=== PATIENT | male | born 1995 | race Hispanic/Latino ===

== ENCOUNTER 2019-08-22 22:05 | Observation (INO) | payer BC ==
[2019-08-22] MEDS ORDERED: NA CHLORIDE 0.9% 1,000 ML ONE (23:24)
[2019-08-22] MEDS ORDERED: MORPHINE 2 MG/ML SYR ONE (23:24)
[2019-08-22] MEDS ORDERED: ONDANSETRON 4 MG/2 ML VIAL ONE (23:24)
[2019-08-22] MEDS ORDERED: FAMOTIDINE 20 MG/2 ML VIAL IV ONE (23:24)
[2019-08-22 23:53] LABS: Absolute Lymphocytes (CBC) 0.4 K/uL (0.7-4.9); Basophils % 0.2 % (0-1.3); Hematocrit 43.7 % (39.6-49.0); Lymphocytes % 3.3 % (15.3-44.8); MPV 8.7 fL (7.6-11.3); RBC Red Blood Cell Count 4.96 M/uL (4.33-5.43)
[2019-08-23 00:14] LABS: Albumin 4.7 g/dL (3.4-5.0); Bilirubin Direct 0.3 mg/dL (0-0.2); Bilirubin Total 1.3 mg/dL (0.2-1.0); Potassium 3.6 mmol/L (3.5-5.1); Protein, Total 7.4 g/dL (6.4-8.2)
[2019-08-23] MEDS ORDERED: CIPROFLOXACIN 400mg IV 400 MG/200 ML BAG IV ONE (00:23)
[2019-08-23] MEDS ORDERED: NA CHLORIDE 0.9% 1,000 ML ONE ×3 (00:23→04:20)
[2019-08-23 00:48] LABS: Blood Morphology Comment NOT SEEN (NOT SEEN); Platelet Estimate ADEQ; Urine White Blood Cell Casts OK
[2019-08-23] MEDS ORDERED: METRONIDAZOLE 500mg IVPB 500 MG/100 ML BAG IV ONE (02:23)
[2019-08-23] MEDS ORDERED: CEFTRIAXONE/SWI 1gm 1 GM/10 ML SYR ONE (02:23)
--- NOTE | 2019-08-23 02:23 | EDPHYS ---
Physician Documentation [facility] Name: Harsha King Age: 24 yrs Sex: Male : 1995 Arrival Date: 08/22/2019 Time: 22:07 Bed 15 Private MD: ED Physician Chu Payne HPI: 08/22 23:19 This 24 yrs old Male presents to ER via Ambulatory with complaints of alicia Abdominal Pain, Nausea, Diarrhea. 23:19 The patient presents to the emergency department with nausea, vomiting, that is alicia intermittent, diarrhea, that is continuous. Onset: The symptoms/episode began/occurred this morning. Possible causes: unknown. The symptoms are aggravated by nothing. The symptoms are alleviated by nothing. Associated signs and symptoms: The patient has no apparent associated signs or symptoms. Severity of symptoms: At their worst the symptoms were moderate in the emergency department the symptoms are unchanged. The patient has not experienced similar symptoms in the past. Historical: - Allergies: 22:12 No Known Allergies; aj1 - Home Meds: 22:12 BuSpar Oral [Active]; aj1 - PMHx: 22:12 Anxiety; aj1 - PSHx: 22:12 arm surgery; aj1 - Immunization history:: Flu vaccine is not up to date. - Social history:: Smoking status: Patient/guardian denies using tobacco. - Ebola Screening: : Patient denies travel to an Ebola-affected area in the 21 days before illness onset. - Family history:: not pertinent. ROS: 23:19 Constitutional: Negative for fever, chills, and weight loss, Eyes: Negative for injury, alicia pain, redness, and discharge, ENT: Negative for injury, pain, and discharge, Neck: Negative for injury, pain, and swelling, Cardiovascular: Negative for chest pain, palpitations, and edema, Respiratory: Negative for shortness of breath, cough, wheezing, and pleuritic chest pain, Back: Negative for injury and pain, : Negative for injury, bleeding, discharge, and swelling, MS/Extremity: Negative for injury and deformity, Neuro: Negative for headache, weakness, numbness, tingling, and seizure, Psych: Negative for depression, anxiety, suicide ideation, homicidal ideation, and hallucinations, Allergy/Immunology: Negative for hives, rash, and allergies, Endocrine: Negative for neck swelling, polydipsia, polyuria, polyphagia, and marked weight changes, Hematologic/Lymphatic: Negative for swollen nodes, abnormal bleeding, and unusual bruising. 23:19 Abdomen/GI: Positive for abdominal pain, nausea and vomiting, diarrhea. 23:19 Skin: Positive for jaundice. Exam: 23:19 Constitutional: This is a well developed, well nourished patient who is awake, alert, alicia and in no acute distress. Head/Face: Normocephalic, atraumatic. Eyes: Pupils equal round and reactive to light, extra-ocular motions intact. Lids and lashes normal. Conjunctiva and sclera are non-icteric and not injected. Cornea within normal limits. Periorbital areas with no swelling, redness, or edema. ENT: Nares patent. No nasal discharge, no septal abnormalities noted. Tympanic membranes are normal and external auditory canals are clear. Oropharynx with no redness, swelling, or masses, exudates, or evidence of obstruction, uvula midline. Mucous membranes moist. Neck: Trachea midline, no thyromegaly or masses palpated, and no cervical lymphadenopathy. Supple, full range of motion without nuchal rigidity, or vertebral point tenderness. No Meningismus. Chest/axilla: Normal chest wall appearance and motion. Nontender with no deformity. No lesions are appreciated. Respiratory: Lungs have equal breath sounds bilaterally, clear to auscultation and percussion. No rales, rhonchi or wheezes noted. No increased work of breathing, no retractions or nasal flaring. Abdomen/GI: Soft, non-tender, with normal bowel sounds. No distension or tympany. No guarding or rebound. No evidence of tenderness throughout. Back: No spinal tenderness. No costovertebral tenderness. Full range of motion. Male : Normal genitalia with no discharge or lesions. Skin: Warm, dry with normal turgor. Normal color with no rashes, no lesions, and no evidence of cellulitis. MS/ Extremity: Pulses equal, no cyanosis. Neurovascular intact. Full, normal range of motion. Neuro: Awake and alert, GCS 15, oriented to person, place, time, and situation. Cranial nerves II-XII grossly intact. Motor strength 5/5 in all extremities. Sensory grossly intact. Cerebellar exam normal. Normal gait. Psych: Awake, alert, with orientation to person, place and time. Behavior, mood, and affect are within normal limits. 23:19 Cardiovascular: Rate: tachycardic, Rhythm: regular, Pulses: Pulses are 4+ in bilateral radial, brachial, femoral, popliteal, posterior tibial and and dorsalis pedis arteries.. Heart sounds: normal, Edema: is not appreciated, JVD: is not appreciated. Vital Signs: 22:12 BP 122 / 78; Pulse 123; Resp 20; Temp 98.5; Pulse Ox 100% on R/A; Weight 81.65 kg (R); aj1 Height 5 ft. 8 in. (172.72 cm) (R); Pain 8/10; 23:05 BP 121 / 75; Pulse 108; Resp 16; Pulse Ox 100% on R/A; Pain 8/10; aa1 08/23 00:32 BP 116 / 65; Pulse 82; Resp 16; Pulse Ox 99% on R/A; aa1 01:30 BP 110 / 78; Pulse 97; Resp 18; Pulse Ox 100% on R/A; aa1 02:30 BP 127 / 77; Pulse 87; Resp 16; Temp 98.9; Pulse Ox 100% on R/A; Pain 0/10; aa1 03:50 BP 104 / 70; Pulse 97; Resp 16; Temp 99.0; Pulse Ox 98% on R/A; Pain 0/10; aa1 08/22 22:12 Body Mass Index 27.37 (81.65 kg, 172.72 cm) [facility] MDM: 08/22 23:10 Patient medically screened. [facility] 23:19 Data reviewed: vital signs, nurses notes, lab test result(s), radiologic studies, CT alicia scan. 08/22 23:19 Order name: Basic Metabolic Panel; Complete Time: 00:21 [facility] 08/22 23:19 Order name: CBC with Diff; Complete Time: 00:54 [facility] 08/22 23:19 Order name: Creatinine for Radiology; Complete Time: 00:21 [facility] 08/22 23:19 Order name: Hepatic Function; Complete Time: 00:21 [facility] 08/22 23:19 Order name: Lipase; Complete Time: 00:21 [facility] 08/22 23:19 Order name: Hepatitis Panel [facility] 08/22 23:19 Order name: CT Abd/Pelvis - IV Contrast Only [facility] 08/22 23:19 Order name: Stool Culture [facility] 08/22 23:19 Order name: Fecal Leukocyte Stain [facility] 08/23 00:48 Order name: CBC Smear Scan; Complete Time: 00:54 [facility] 08/22 23:19 Order name: IV Saline Lock; Complete Time: 23:39 alicia 08/22 23: Order name: Labs collected and sent; Complete Time: 23:39 alicia Administered Medications: 23:31 Drug: NS 0.9% 1000 ml Route: IV; Rate: 1 bolus; Site: left antecubital; aa1 08/23 00:30 Follow up: IV Status: Completed infusion; IV Intake: 1000ml aa 08/22 23:31 Drug: Pepcid 20 mg Route: IVP; Site: left antecubital; aa1 08/23 00:31 Follow up: Response: No adverse reaction; Marked relief of symptoms [facility] 08/22 23:32 Drug: Zofran 4 mg Route: IVP; Site: left antecubital; aa1 08/23 00:31 Follow up: Response: No adverse reaction; Nausea is decreased [facility] 08/22 23:34 Drug: morphine 2 mg Route: IVP; Site: left antecubital; aa1 08/23 00:34 Follow up: Response: No adverse reaction; Pain is decreased aa1 00:40 Drug: Cipro 400 mg Volume: 200 ml; Route: IVPB; Infused Over: 60 mins; Site: left aa1 antecubital; 01:55 Follow up: IV Status: Completed infusion; IV Intake: 200ml aa1 00:55 Drug: NS 0.9% 1000 ml Route: IV; Rate: 1 bolus; Site: left antecubital; aa1 01:55 Follow up: IV Status: Completed infusion; IV Intake: 1000ml aa1 02:55 Drug: Rocephin 1 grams Route: IV; Rate: per protocol; Site: left antecubital; aa1 03:00 Follow up: IV Status: Completed infusion; IV Intake: 10ml aa1 03:00 Drug: Flagyl 500 mg Volume: 100 ml; Route: IVPB; Rate: 200 ml/hr; Infused Over: 30 aa1 mins; Site: left antecubital; 03:30 Follow up: IV Status: Completed infusion; IV Intake: 100ml aa1 03:00 Drug: NS 0.9% 1000 ml Route: IV; Rate: 125 ml/hr; Site: left antecubital; aa1 03:07 Follow up: IV Status: Infusion continued upon admission aa1 Disposition: 08/23/19 02:23 Hospitalization ordered by John Gomez for Inpatient Admission. Preliminary diagnosis are Abdominal tenderness, Left sided colitis - moderate/severe, right sided, Nausea, Vomiting, Diarrhea, unspecified. - Bed requested for Telemetry/MedSurg (Inpatient). - Status is Inpatient Admission. aa1 - Condition is Fair. - Problem is new. - Symptoms have improved. UTI on Admission? No Signatures: Dispatcher [employer] EDKirsten Vasquez RN RN aj1 Roseanne Ferrara RN RN aa1 Chu Payne MD MD cha Garcia, Cindy, RN RN cg Corrections: (The following items were deleted from the chart) 03:45 02:23 Hospitalization Ordered by John Gomez for Inpatient Admission. Preliminary cg diagnosis is Abdominal tenderness; Left sided colitis - moderate/severe, right sided; Nausea; Vomiting; Diarrhea, unspecified. Bed requested for Telemetry/MedSurg (Inpatient). Status is Inpatient Admission. Condition is Fair. Problem is new. Symptoms have improved. UTI on Admission? No. alicia 04:08 03:45 08/23/2019 02:23 Hospitalization Ordered by John Gomez for Inpatient aa1 Admission. Preliminary diagnosis is Abdominal tenderness; Left sided colitis - moderate/severe, right sided; Nausea; Vomiting; Diarrhea, unspecified. Bed requested for Telemetry/MedSurg (Inpatient). Status is Inpatient Admission. Condition is Fair. Problem is new. Symptoms have improved. UTI on Admission? No. cg
--- NOTE | 2019-08-23 02:23 | ER ---
Nurse's Notes [facility] Name: Harsha King Age: 24 yrs Sex: Male : 1995 Arrival Date: 08/22/2019 Time: 22:07 Bed 15 Private MD: Diagnosis: Abdominal tenderness;Left sided colitis-moderate/severe, right sided;Nausea;Vomiting;Diarrhea, unspecified Presentation: 08/22 22:10 Presenting complaint: Patient states: "I've been pooping all day, like diarrhea and aj1 throwing up, and its been since like 10 this morning" Reports epigastric pain, denies fever. Transition of care: patient was not received from another setting of care. Onset of symptoms was August 22, 2019 at 10:00. Risk Assessment: Do you want to hurt yourself or someone else? Patient reports no desire to harm self or others. Initial Sepsis Screen: Does the patient meet any 2 criteria? HR > 90 bpm. No. Patient's initial sepsis screen is negative. Does the patient have a suspected source of infection? Yes: Acute abdominal pain. Care prior to arrival: None. 22:10 Method Of Arrival: Ambulatory aj 22:10 Acuity: ALEXANDRE 3 aj1 Triage Assessment: 22:12 General: Appears in no apparent distress. uncomfortable, Behavior is calm, cooperative, aj1 appropriate for age. Pain: Complains of pain in epigastric area Pain currently is 8 out of 10 on a pain scale. Neuro: Level of Consciousness is awake, alert, obeys commands, Oriented to person, place, time, situation. Cardiovascular: Patient's skin is warm and dry. Respiratory: Airway is patent Respiratory effort is even, unlabored, Respiratory pattern is regular, symmetrical. GI: Reports upper abdominal pain, diarrhea, nausea, vomiting. Historical: - Allergies: 22:12 No Known Allergies; aj1 - Home Meds: 22:12 BuSpar Oral [Active]; aj1 - PMHx: 22:12 Anxiety; aj1 - PSHx: 22:12 arm surgery; aj1 - Immunization history:: Flu vaccine is not up to date. - Social history:: Smoking status: Patient/guardian denies using tobacco. - Ebola Screening: : Patient denies travel to an Ebola-affected area in the 21 days before illness onset. - Family history:: not pertinent. Screenin:06 Abuse screen: Denies threats or abuse. Denies injuries from another. Nutritional aa1 screening: No deficits noted. Tuberculosis screening: No symptoms or risk factors identified. Fall Risk None identified. Assessment: 23:06 General: Appears in no apparent distress. comfortable, Behavior is calm, cooperative, aa1 appropriate for age. Pain: Complains of pain in abdomen Quality of pain is described as crampy, Pain began this morning. Neuro: Level of Consciousness is awake, alert, obeys commands, Oriented to person, place, time, situation, Moves all extremities. Full function Gait is steady, Speech is normal. Respiratory: Airway is patent Respiratory effort is even, unlabored, Respiratory pattern is regular, symmetrical. GI: Abdomen is non-distended, Bowel sounds present X 4 quads. Abd is soft and non tender X 4 quads. Reports cramping, diarrhea, intolerance of fluids, intolerance of food, nausea, vomiting. : No signs and/or symptoms were reported regarding the genitourinary system. EENT: No signs and/or symptoms were reported regarding the EENT system. Derm: Skin is intact, is healthy with good turgor, Skin is pink, warm \\T\\ dry. Musculoskeletal: Circulation, motion, and sensation intact. Capillary refill < 3 seconds. 08/23 00:32 Reassessment: Patient appears in no apparent distress at this time. Patient and/or aa1 family updated on plan of care and expected duration. Pain level reassessed. Patient is alert, oriented x 3, equal unlabored respirations, skin warm/dry/pink. Awaiting CT scan. 02:51 Reassessment: Patient appears in no apparent distress at this time. Patient and/or aa1 family updated on plan of care and expected duration. Pain level reassessed. Patient is alert, oriented x 3, equal unlabored respirations, skin warm/dry/pink. Dr. Gomez at bedside for admission. 03:50 Reassessment: Patient appears in no apparent distress at this time. Patient and/or aa1 family updated on plan of care and expected duration. Pain level reassessed. Patient is alert, oriented x 3, equal unlabored respirations, skin warm/dry/pink. Bed assignment received; attempted to call report but nurse unavailable. 04:02 Reassessment: Report given to Margareth Haynes RN. aa1 Vital Signs: 08/22 22:12 BP 122 / 78; Pulse 123; Resp 20; Temp 98.5; Pulse Ox 100% on R/A; Weight 81.65 kg (R); aj1 Height 5 ft. 8 in. (172.72 cm) (R); Pain 8/10; 23:05 BP 121 / 75; Pulse 108; Resp 16; Pulse Ox 100% on R/A; Pain 8/10; aa1 08/23 00:32 BP 116 / 65; Pulse 82; Resp 16; Pulse Ox 99% on R/A; aa1 01:30 BP 110 / 78; Pulse 97; Resp 18; Pulse Ox 100% on R/A; aa1 02:30 BP 127 / 77; Pulse 87; Resp 16; Temp 98.9; Pulse Ox 100% on R/A; Pain 0/10; aa1 03:50 BP 104 / 70; Pulse 97; Resp 16; Temp 99.0; Pulse Ox 98% on R/A; Pain 0/10; aa1 08/22 22:12 Body Mass Index 27.37 (81.65 kg, 172.72 cm) aj1 ED Course: 08/22 22:07 Patient arrived in ED. ds1 22:11 Triage completed. aj1 22:12 Arm band placed on Patient placed in waiting room, Patient notified of wait time. aj1 22:58 Roseanne Ferrara, RN is Primary Nurse. aa1 23:06 Patient has correct armband on for positive identification. Placed in gown. Bed in low aa1 position. Call light in reach. Pulse ox on. NIBP on. Warm blanket given. 23:10 Chu Payne MD is Attending Physician. alicia 23:54 Radiology exam delayed due to lab results not completed at this time. (BUN/Creatinine). kw1 08/23 01:54 CT Abd/Pelvis - IV Contrast Only In Process Unspecified. EDMS 02:21 John Gomez is Hospitalizing Provider. alicia 03:49 No provider procedures requiring assistance completed. Patient admitted, IV remains in aa1 place. Administered Medications: 08/22 23:31 Drug: NS 0.9% 1000 ml Route: IV; Rate: 1 bolus; Site: left antecubital; aa1 08/23 00:30 Follow up: IV Status: Completed infusion; IV Intake: 1000ml aa1 08/22 23:31 Drug: Pepcid 20 mg Route: IVP; Site: left antecubital; aa1 08/23 00:31 Follow up: Response: No adverse reaction; Marked relief of symptoms aa1 08/22 23:32 Drug: Zofran 4 mg Route: IVP; Site: left antecubital; aa1 08/23 00:31 Follow up: Response: No adverse reaction; Nausea is decreased aa1 08/22 23:34 Drug: morphine 2 mg Route: IVP; Site: left antecubital; aa1 08/23 00:34 Follow up: Response: No adverse reaction; Pain is decreased aa1 00:40 Drug: Cipro 400 mg Volume: 200 ml; Route: IVPB; Infused Over: 60 mins; Site: left aa1 antecubital; :55 Follow up: IV Status: Completed infusion; IV Intake: 200ml aa1 00:55 Drug: NS 0.9% 1000 ml Route: IV; Rate: 1 bolus; Site: left antecubital; aa11 03:55 Follow up: IV Status: Completed infusion; IV Intake: 1000ml 02:55 Drug: Rocephin 1 grams Route: IV; Rate: per protocol; Site: left antecubital; aa 03:00 Follow up: IV Status: Completed infusion; IV Intake: 10ml aa 03:00 Drug: Flagyl 500 mg Volume: 100 ml; Route: IVPB; Rate: 200 ml/hr; Infused Over: 30 aa1 mins; Site: left antecubital; 03:30 Follow up: IV Status: Completed infusion; IV Intake: 100ml aa 03:00 Drug: NS 0.9% 1000 ml Route: IV; Rate: 125 ml/hr; Site: left antecubital; aa1 03:07 Follow up: IV Status: Infusion continued upon admission aa1 Intake: 00:30 IV: 1000ml; Total: 1000ml. :55 IV: 1000ml; Total: 2000ml. 01:55 IV: 200ml; Total: 2200ml. aa 03:00 IV: 10ml; Total: 2210ml. aa 03:30 IV: 100ml; Total: 2310ml. aa1 Outcome: 02:23 Decision to Hospitalize by Provider. alicia 04:07 Admitted to Med/surg accompanied by tech, via wheelchair, room 228, with chart, Report aa1 called to Margareth Haynes RN 04:07 Condition: good 04:07 Instructed on the need for admit, Demonstrated understanding of instructions. 04:08 Patient left the ED. aa1 Signatures: Dispatcher [employer] EDKirsten Vasquez RN RN aj1 Roseanne Ferrara RN RN aa1 Chu Payne MD MD cha Sanford, Demi ds1 Maribeth York kw1
--- NOTE | 2019-08-23 02:57 | P.HP ---
Certification for Inpatient Patient admitted to: Observation With expected LOS: <2 Midnights Practitioner: I am a practitioner with admitting privileges, knowledge of patient current condition, hospital course, and medical plan of care. Services: Services provided to patient in accordance with Admission requirements found in Title 42 Section 412.3 of the Code of Federal Regulations Patient History Date of Service: 08/23/19 Reason for admission: Abdominal pain, diarrhea and vomiting History of Present Illness: 24-year-old gentleman with a history of anxiety disorder presented to the emergency department with a complaint of diarrhea and vomiting and abdominal pain. Patient reports several bouts of watery stools, about 20 times since yesterday, no blood, non. mucoid. He also reports vomiting several times and not able to hold any food or drink in. He denied any fever. He denied any sick contact. In the ED, patient's creatinine was noted to be elevated. This could be due to dehydration. CT abdomen and pelvis reports pancolitis. Patient is hospitalized for further management. Allergies No Known Allergies Allergy (Unverified 08/23/19 04:24) Home medications list reviewed: Yes Home Medications: Buspirone HCl [Buspar] 10 mg PO BID* 08/23/19 - Past Medical/Surgical History -: Anxiety disorder - Family History Family History: Reviewed- Non-Contributory - Family History Father -: Diabetes Mother History Unknown: Yes - Social History Smoking Status: Never smoker (Smokes marijuana occassionally) Alcohol use: Yes CD- Drugs: No Place of Residence: Home Review of Systems Other: General: No fever, no malaise, no unintentional weight loss. Eyes: No eye discharge, Respiratory: No cough, no shortness of breath. CVS: No chest pain, no palpitation, no lightheadedness. Genitourinary: No dysuria, no urinary frequency, no incontinence, no hematuria. Musculoskeletal: No joint pains, or joint swelling, no gait instability. Neurology: No headache, no asymmetric, weakness, no problem with swallowing. Except as documented, all other systems reviewed and negative. Physical Examination - Physical Exam General: Alert, In no apparent distress, Oriented x3 HEENT: PERRLA, Mucous membr. moist/pink Neck: Supple, JVD not distended, No Thyromegaly Respiratory: Clear to auscultation bilaterally, Normal air movement Cardiovascular: No edema, Normal pulses, Regular rate/rhythm, Normal S1 S2, No murmurs Capillary refill: <2 Seconds Gastrointestinal: Normal bowel sounds, Soft and benign, Non-distended, No tenderness Musculoskeletal: No swelling Integumentary: No rashes, No erythema Neurological: Normal speech, Normal strength at 5/5 x4 extr, Cranial nerves 3- 12 intact - Studies Laboratory Data (last 24 hrs) 08/22/19 23:40: Creatinine 1.37 H 08/22/19 23:40: WBC 11.4 H, Hgb 15.0, Hct 43.7, Plt Count 172 08/22/19 23:40: Sodium 137, Potassium 3.6, BUN 18, Creatinine 1.37 H, Glucose 141 H, Total Bilirubin 1.3 H, AST 19, ALT 25, Alkaline Phosphatase 47, Lipase 21 L Assessment and Plan - Problems (Diagnosis) (1) Colitis Current Visit: Yes Status: Acute (2) Acute renal failure Current Visit: Yes Status: Acute (3) Anxiety disorder Current Visit: Yes Status: Chronic (4) Elevated bilirubin Current Visit: Yes Status: Acute - Plan Place under observation Supportive measures with IV normal saline and antiemetics. Treat prerenal failure with IV normal saline. Start IV ciprofloxacin and Flagyl Stool studies-WBC, c. diff, stool culture. Continue home dose Buspirone Monitor CBC and BMP - Advance Directives Does patient have a Living Will: No Does patient have a Durable POA for Healthcare: No
[2019-08-23 04:20] VITALS: BMI 28.3
[2019-08-23] MEDS: NA CHLORIDE 0.9% 1,000 ML IV SCH ×3 (04:24→23:36)
[2019-08-23] MEDS ORDERED: ONDANSETRON 4 MG/2 ML VIAL IV PRN (04:24)
[2019-08-23] MEDS ORDERED: POTASSIUM CL SA 10 MEQ TAB PO ONE (04:59)
[2019-08-23 05:42] LABS: Thyroid Stimulating Hormone 0.436 uIU/mL (0.360-3.740)
[2019-08-23 06:12] LABS: Phosphorus 2.7 mg/dL (2.5-4.9)
[2019-08-23 06:16] LABS: Magnesium 1.3 mg/dL (1.8-2.4)
[2019-08-23] MEDS ORDERED: Magnesium Sulfate 2gm IVPB 2 G/50 ML BAG IV ONE (06:17)
[2019-08-23] MEDS: METRONIDAZOLE 500mg IVPB 500 MG/100 ML BAG IV SCH ×2 (09:25→17:11)
--- NOTE | 2019-08-23 10:35 | RAD REPORT ---
EXAM DESCRIPTION: Abdomen Pelvis W Contrast - 08/23/2019 5:33 am CLINICAL HISTORY: 24 years Male ABD PAIN TECHNIQUE: Contiguous axial images obtained through the abdomen and pelvis following intravenous con trast administration. Coronal and sagittal reformatted images provided. This CT exam was performed according to our departmental dose-optimization program, which includes on e or more of the following dose reduction techniques: automated exposure control, adjustment of the m A and/or kV according to patient size, and/or use of iterative reconstruction technique. COMPARISON: No prior exams provided for comparison. FINDINGS: The stomach, small bowel, and appendix are normal. There is severe inflammation of the cec um, ascending colon, and hepatic flexure. There is moderate inflammation of the remainder of the of t he transverse colon and mild diffuse inflammation of the descending colon. There is no bowel obstruct ion, pneumatosis, free intraperitoneal air, abscess, or ascites. The lung bases, liver, biliary tree, gallbladder, pancreas, spleen, adrenal glands, kidneys, urinary bladder, and osseous structures are normal. IMPRESSION: Severe inflammation of the proximal half of the colon. Moderate inflammation of the graham sverse colon and mild diffuse inflammation of the descending colon. No bowel obstruction or perforati on. Findings could be infectious or inflammatory. Electronically signed by: Miryam Cevallos MD 08/23/2019 2:01 AM CDT Due to temporary technical issues with the PACS/Fluency reporting system, reports are being signed by the in house radiologist as a courtesy to ensure prompt reporting. The interpreting radiologist is f ully responsible for the content of the report.
[2019-08-23] MEDS: CIPROFLOXACIN 400mg IV 400 MG/200 ML BAG IV SCH ×2 (12:16→23:37)
[2019-08-23] MEDS: ACETAMINOPHEN 500 MG TAB PO PRN ×2 (18:08→22:08)
[2019-08-24] MEDS: METRONIDAZOLE 500mg IVPB 500 MG/100 ML BAG IV SCH ×2 (01:02→09:06)
[2019-08-24] MEDS: MORPHINE 4 MG/ML SYR IV PRN ×2 (01:11→09:07)
[2019-08-24 05:37] LABS: Absolute Lymphocytes (CBC) 1.4 K/uL (0.7-4.9); Basophils % 0.6 % (0-1.3); Hematocrit 35.1 % (39.6-49.0); Lymphocytes % 21.4 % (15.3-44.8); MPV 8.6 fL (7.6-11.3); RBC Red Blood Cell Count 3.99 M/uL (4.33-5.43)
[2019-08-24 05:56] LABS: Albumin 3.1 g/dL (3.4-5.0); Bilirubin Total 0.4 mg/dL (0.2-1.0); Magnesium 2.2 mg/dL (1.8-2.4); Phosphorus 1.4 mg/dL (2.5-4.9); Potassium 4.4 mmol/L (3.5-5.1); Protein, Total 5.7 g/dL (6.4-8.2)
[2019-08-24 08:22] VITALS: O2SAT 97
[2019-08-24] MEDS: POTASS/SODIUM PHOSPHATE 1 PKT POWD.PACK PO SCH (09:07)
--- NOTE | 2019-08-24 11:51 | P.SSS ---
Patient History Date of Service: 08/24/19 Reason for admission: Abdominal pain, diarrhea and vomiting History of Present Illness: 24-year-old gentleman with a history of anxiety disorder presented to the emergency department with a complaint of diarrhea and vomiting and abdominal pain. Patient reports several bouts of watery stools, about 20 times since yesterday, no blood, non. mucoid. He also reports vomiting several times and not able to hold any food or drink in. He denied any fever. He denied any sick contact. In the ED, patient's creatinine was noted to be elevated. This could be due to dehydration. CT abdomen and pelvis reports pancolitis. Patient is hospitalized for further management. Allergies No Known Allergies Allergy (Unverified 08/23/19 04:24) Home Medications: Buspirone HCl [Buspar] 10 mg PO BID* 08/23/19 Ciprofloxacin HCl [Cipro 500 MG Tablet] 500 mg PO BID #14 tab 08/24/19 metroNIDAZOLE [Flagyl] 500 mg PO Q6H #28 tablet 08/24/19 - Past Medical/Surgical History Diabetic: No -: Anxiety disorder -: left arm orif - Family History Family History: Reviewed- Non-Contributory - Family History Father -: Diabetes Mother History Unknown: Yes - Social History Smoking Status: Never smoker (Smokes marijuana occassionally) Alcohol use: Yes CD- Drugs: No Caffeine use: Yes Place of Residence: Home Review of Systems 10-point ROS is otherwise unremarkable Physical Examination - Vital Signs Temperature: 97.3 F Blood Pressure: 118/58 Pulse: 57 Respirations: 17 Pulse Ox (%): 99 - Physical Exam General: Alert, In no apparent distress HEENT: Atraumatic, PERRLA, Mucous membr. moist/pink, EOMI, Sclerae nonicteric Neck: Supple, 2+ carotid pulse no bruit, No LAD, Without JVD or thyroid abnormality Respiratory: Clear to auscultation bilaterally, Normal air movement Cardiovascular: Regular rate/rhythm, Normal S1 S2 Gastrointestinal: Normal bowel sounds, No tenderness Musculoskeletal: No tenderness Integumentary: No rashes Neurological: Normal gait, Normal speech, Normal strength at 5/5 x4 extr, Normal tone, Normal affect Lymphatics: No axilla or inguinal lymphadenopathy - Diagnosis (Problem(s)) (1) Colitis Current Visit: Yes Status: Resolved (2) Anxiety disorder Current Visit: Yes Status: Chronic Qualifiers: Phobia type: unspecified phobia Treatment Summary: Overall during stay patient stable Patient is initially admitted to the hospital for abdominal pain nausea vomiting and diarrhea. Was found to have colitis. Was started on IV antibiotics and was kept NPO. Had marked improvement in the symptoms. Was advanced to a clear liquid diet which she tolerated well. Once nausea vomiting abdominal pain and diarrhea had resolved patient then was discharged home under stable condition was given prescription for p.o. ciprofloxacin and Flagyl to be taken total for 7 days. - Disposition Disposition: ROUTINE DISCHARGE Condition: GOOD Diet: Regular Activity: Ad marco
[2019-08-24 12:05] VITALS: BP 125/65; TEMP 97.2
[2019-08-24] MEDS: CIPROFLOXACIN 400mg IV 400 MG/200 ML BAG IV SCH (12:59)
[2019-08-24 13:34] LABS: C.diff Antigen/Toxin Ag neg : Tox neg (NEG : NEG)
[2019-08-25 03:38] LABS: HBsAG Nonreactive (Nonreactive)
== END 2019-08-24 14:38 | disposition home or self-care (01) ==
LOC: ER 22:05 → ERHOLD 08-23 03:07 → 2ND 08-23 04:01
PROVIDERS: ADMIT Internal Medicine; ATTEND Family Medicine
DX: K52.9 Noninfective gastroenteritis and colitis, unspecified (principal); N17.9 Acute kidney failure, unspecified; F41.9 Anxiety disorder, unspecified
CPT/HCPCS: 96365; 96367; 96361; 87045; 85025 ×2; 80048; 36415 ×2; 83735 ×2; 89055; 84100 ×2; 80076; 87046; 84443; 87324; 83690; 80053; 87449; 80074; 74177; 94760 ×3; 96375; 99285; Q9967; J2270; J3475; J0696; J7030 ×6; J2405 ×2; J0744 ×4; G0378 ×3

== ENCOUNTER 2023-04-04 21:48 | Emergency (ER) | payer BC ==
[2023-04-04 22:28] LABS: Absolute Lymphocytes (CBC) 0.3 K/uL (0.7-4.9); Hematocrit 44.3 % (39.6-49.0); Lymphocytes % 2.9 % (15.3-44.8); MCV 88.6 fL (80-100)
[2023-04-04] MEDS ORDERED: FAMOTIDINE 20 MG/2 ML VIAL IV ONE (22:40)
[2023-04-04] MEDS ORDERED: DICYCLOMINE HCL 10 MG CAP ONE (22:40)
[2023-04-04] MEDS ORDERED: ONDANSETRON 4 MG/2 ML VIAL ONE (22:40)
[2023-04-04] MEDS ORDERED: NA CHLORIDE 0.9% 1,000 ML ONE (22:40)
[2023-04-04 22:45] LABS: Albumin 4.5 g/dL (3.4-5.0); Bilirubin Total 1.1 mg/dL (0.2-1.0); Potassium 3.5 mEq/L (3.5-5.1)
--- NOTE | 2023-04-04 23:14 | ER ---
Nurse's Notes [facility] Name: Harsha King Age: 27 yrs Sex: Male : 1995 Arrival Date: 04/04/2023 Time: 21:48 Bed 16 Private MD: Diagnosis: Upper abdominal pain, unspecified;Nausea with vomiting, unspecified Presentation: 04/04 22:03 Chief complaint: Patient states: I have been with nausea and abdominal pain all day and ha1 tonight I felt that my symptoms are not impeoving. 22:03 Coronavirus screen: Vaccine status:. Ebola Screen: No symptoms or risks identified at [facility] this time. Initial Sepsis Screen: Does the patient meet any 2 criteria? No. Patient's initial sepsis screen is negative. Does the patient have a suspected source of infection? No. Patient's initial sepsis screen is negative. Risk Assessment: Do you want to hurt yourself or someone else? Patient reports no desire to harm self or others. Onset of symptoms was April 04, 2023. 22:03 Method Of Arrival: Ambulatory [facility] 22:03 Acuity: ALEXANDRE 3 1 Triage Assessment: 22:03 General: Appears comfortable, Behavior is calm, cooperative. Pain: Complains of pain in ha1 epigastric area Pain does not radiate. Pain currently is 5 out of 10 on a pain scale. Quality of pain is described as burning, crampy. Neuro: Level of Consciousness is awake, alert, obeys commands, Oriented to person, place, time, situation. Cardiovascular: Capillary refill < 3 seconds Patient's skin is warm and dry. Respiratory: Airway is patent Respiratory effort is even, unlabored, Respiratory pattern is regular, symmetrical. GI: Abdomen is flat, non-distended, Bowel sounds present X 4 quads. Reports upper abdominal pain, nausea, vomiting. : No signs and/or symptoms were reported regarding the genitourinary system. Derm: Skin is pink, warm \T\ dry. Musculoskeletal: Circulation, motion, and sensation intact. Range of motion: intact in all extremities. Historical: - Allergies: 22:03 No Known Allergies; ha1 - Home Meds: 22:03 citalopram oral [Active]; ha1 - PMHx: 22:03 Anxiety; ha1 - Immunization history:: Adult Immunizations up to date. - Social history:: Smoking status: unknown. Screenin:53 Abuse screen: Denies threats or abuse. Denies injuries from another. Nutritional ha1 screening: No deficits noted. Tuberculosis screening: No symptoms or risk factors identified. Assessment: 22:03 Reassessment: see triage assessment. ha1 23:05 Reassessment: Patient and/or family updated on plan of care and expected duration. Pain ha1 level reassessed. Patient is alert, oriented x 3, equal unlabored respirations, skin warm/dry/pink. Patient states feeling better. Patient states symptoms have improved. 23:44 Reassessment: waiting on fluids to be completed. ha1 23:58 Reassessment: Patient and/or family updated on plan of care and expected duration. Pain ha1 level reassessed. Patient is alert, oriented x 3, equal unlabored respirations, skin warm/dry/pink. Patient denies pain at this time. Patient states feeling better. Patient states symptoms have improved. Vital Signs: 22:03 BP 118 / 72; Pulse 92; Resp 16 S; Temp 98.4(O); Pulse Ox 99% on R/A; Weight 81.65 kg; ha1 Height 5 ft. 8 in. ; 23:10 BP 114 / 72; Pulse 90; Resp 16 S; Pulse Ox 99% ; ha1 22:03 Body Mass Index 27.37 (81.65 kg, 172.72 cm) ha1 ED Course: 21:52 Patient arrived in ED. ag3 21:57 Radha Gusman FNP-C is [facility]. kb 21:57 Chu Payne MD is Attending Physician. kb 22:03 Patient has correct armband on for positive identification. Placed in gown. Bed in low ha1 position. Call light in reach. Side rails up X 1. 22:03 Arm band placed on right wrist. ha1 22:05 Aura Rios RN is Primary Nurse. ha1 22:40 CMP Sent. ha1 22:40 Lipase Sent. ha1 22:49 Triage completed. ha1 Administered Medications: 22:32 Drug: Ondansetron IVP 4 mg Route: IVP; Site: left antecubital; ha1 23:57 Follow up: Response: No adverse reaction; Nausea is decreased ha1 22:35 Drug: NS 0.9% IV 1000 ml Route: IV; Rate: 1 bolus; Site: left antecubital; ha1 23:57 Follow up: Response: No adverse reaction; IV Status: Completed infusion; IV Intake: ha1 1000ml 22:35 Drug: Famotidine IVP 20 mg Route: IVP; Site: left antecubital; ha1 23:00 Follow up: Response: No adverse reaction ha1 22:50 Drug: Dicyclomine PO 20 mg Route: PO; ha1 23:20 Follow up: Response: No adverse reaction ha1 Intake: 23:57 IV: 1000ml; Total: 1000ml. ha1 Outcome: 23:13 Discharge ordered by MD. fleming 04/05 00:11 Patient left the ED. ha1 Signatures: Radha Gusman FNP-C FNP-Ckb Gomez, Alice 3 Aura Rios, RN RN ha1
--- NOTE | 2023-04-04 23:14 | EDPHYS ---
Physician Documentation [facility] Name: Harsha King Age: 27 yrs Sex: Male : 1995 Arrival Date: 04/04/2023 Time: 21:48 Bed 16 Private MD: ED Physician Chu Payne HPI: 04/04 22:34 This 27 yrs old Male presents to ER via Unassigned with complaints of kb Vomiting, Fever. 22:34 The patient presents to the emergency department with nausea, vomiting, abdominal pain, kb of the epigastric area. Onset: The symptoms/episode began/occurred this morning. Possible causes: unknown. The symptoms are aggravated by nothing. The symptoms are alleviated by nothing. Associated signs and symptoms: Pertinent positives: abdominal pain, nausea, vomiting, Pertinent negatives: diarrhea. Severity of symptoms: At their worst the symptoms were moderate in the emergency department the symptoms are unchanged. The patient has not experienced similar symptoms in the past. The patient has not recently seen a physician. Pt reports upper abd pain that started at 1100, then nausea and vomiting that started at noon. Reports he has been unable to tolerate anything by mouth since onset. Historical: - Allergies: 22:03 No Known Allergies; ha1 - Home Meds: 22:03 citalopram oral [Active]; ha1 - PMHx: 22:03 Anxiety; ha1 - Immunization history:: Adult Immunizations up to date. - Social history:: Smoking status: unknown. ROS: 22:32 Cardiovascular: Negative for chest pain, palpitations, and edema. kb 22:32 Constitutional: Positive for chills. 22:32 Abdomen/GI: Positive for abdominal pain, nausea and vomiting, Negative for diarrhea, constipation. 22:32 All other systems are negative. Exam: 22:32 Constitutional: This is a well developed, well nourished patient who is awake, alert, kb and in no acute distress. Head/Face: Normocephalic, atraumatic. ENT: Moist Mucous membranes Cardiovascular: Regular rate and rhythm with a normal S1 and S2. No gallops, murmurs, or rubs. No pulse deficits. Respiratory: Respirations even and unlabored. No increased work of breathing. Talking in full sentences Abdomen/GI: Soft, non-tender. No distention Skin: Warm, dry with normal turgor. Normal color. MS/ Extremity: Pulses equal, no cyanosis. Neurovascular intact. Full, normal range of motion. Neuro: Awake and alert, GCS 15, oriented to person, place, time, and situation. Moves all extremities. Normal gait. Vital Signs: 22:03 BP 118 / 72; Pulse 92; Resp 16 S; Temp 98.4(O); Pulse Ox 99% on R/A; Weight 81.65 kg; ha1 Height 5 ft. 8 in. ; 23:10 BP 114 / 72; Pulse 90; Resp 16 S; Pulse Ox 99% ; ha1 22:03 Body Mass Index 27.37 (81.65 kg, 172.72 cm) ha1 MDM: 21:57 Patient medically screened. kb 22:35 Differential diagnosis: Nonspecific abd pain, gastritis, cholecystitis, pancreatitis, kb viral gastroenteritis. Data reviewed: vital signs, nurses notes. 23:12 Test considered but Not performed: CT: CT considered, but pt has no abd tenderness, kb afebrile, nontoxic in appearance. Counseling: I had a detailed discussion with the patient and/or guardian regarding: the historical points, exam findings, and any diagnostic results supporting the discharge/admit diagnosis, lab results, the need for outpatient follow up, a family practitioner, to return to the emergency department if symptoms worsen or persist or if there are any questions or concerns that arise at home. 0602 22:03 Order name: CBC with Diff; Complete Time: 00:11 kb 02 22:03 Order name: CMP; Complete Time: 22:48 kb 02 22:03 Order name: Lipase; Complete Time: 22:48 kb 04/04 22:46 Order name: Manual Differential; Complete Time: 00:11 EDMS 02 22:03 Order name: IV Saline Lock; Complete Time: 22:40 kb 02 22:03 Order name: Labs collected and sent; Complete Time: 22:40 kb 02 22:48 Order name: PO challenge; Complete Time: 23:04 kb Administered Medications: 22:32 Drug: Ondansetron IVP 4 mg Route: IVP; Site: left antecubital; ha1 23:57 Follow up: Response: No adverse reaction; Nausea is decreased ha1 22:35 Drug: NS 0.9% IV 1000 ml Route: IV; Rate: 1 bolus; Site: left antecubital; ha1 23:57 Follow up: Response: No adverse reaction; IV Status: Completed infusion; IV Intake: ha1 1000ml 22:35 Drug: Famotidine IVP 20 mg Route: IVP; Site: left antecubital; ha1 23:00 Follow up: Response: No adverse reaction ha1 22:50 Drug: Dicyclomine PO 20 mg Route: PO; ha1 23:20 Follow up: Response: No adverse reaction ha1 Disposition Summary: 04/04/23 23:13 Discharge Ordered Location: Home kb Condition: Stable kb Diagnosis - Upper abdominal pain, unspecified kb - Nausea with vomiting, unspecified kb Followup: kb - With: Emergency Department - When: As needed - Reason: Worsening of condition Followup: kb - With: Private Physician - When: 2 - 3 days - Reason: Recheck today's complaints, Continuance of care, Re-evaluation by your physician Discharge Instructions: - Discharge Summary Sheet kb - Nausea and Vomiting, Adult, [id number] kb - Abdominal Pain, Adult, [id number] kb Forms: - Medication Reconciliation Form kb - Thank You Letter kb - Antibiotic Education kb - Prescription Opioid Use kb Prescriptions: - Zofran 4 mg Oral Tablet - take 1 tablet by ORAL route every 6 hours As needed; 20 tablet; Refills: 0, kb Product Selection Permitted - dicyclomine 20 mg Oral Tablet - take 1 tablet by ORAL route 4 times per day As needed; 20 tablet; Refills: 0, kb Product Selection Permitted Signatures: Dispatcher [employer] Radha Laboy, NURSE NAVIGATOR-C NURSE NAVIGATOR-Aura Reza RN RN ha1 Corrections: (The following items were deleted from the chart) 22:35 22:35 Differential diagnosis: Nonspecific abd pain, gastritis, viral gastroenteritis, kbkb
[2023-04-04 23:54] LABS: Blood Morphology Comment NOT SEEN (NOT SEEN); Platelet Estimate ADEQ
[2023-04-05 00:51] VITALS: TEMP 98.4; O2SAT 99
[2023-04-05 00:52] VITALS: BP 114/72
== END 2023-04-05 00:11 | disposition home or self-care (01) ==
LOC: ER 21:48
DX: R10.13 Epigastric pain (principal); R11.2 Nausea with vomiting, unspecified; F41.9 Anxiety disorder, unspecified
CPT/HCPCS: 96361; 85025; 36415; 83690; 80053; 96375; 96374; 99284; J2405; J7030